=== PATIENT | male | born 1995 | race Caucasian/White ===

== ENCOUNTER 2018-06-14 18:32 | Emergency (ER) | payer MEDICAID ==
[~2018-06-14] VITALS: Ht 172.7 cm; Wt 65.8 kg
--- NOTE | 2018-06-14 18:56 | NUR ---
BIB [facility]. PATIENT IS AWAKE, ALERT, ORIENTED X4. [employer] AT BEDSIDE.
--- NOTE | 2018-06-14 19:05 | NUR ---
HAND OFF REPORT GIVEN TO JAJA MANCUSO
--- NOTE | 2018-06-14 19:21 | NUR ---
Dr. Trimble at bedside for MSE.
[2018-06-14] MEDS ORDERED: IBUPROFEN 600 MG TABLET ONE (19:38)
[2018-06-14] MEDS ORDERED: IBUPROFEN 600 MG TABLET PO ONE (19:45)
--- NOTE | 2018-06-14 20:10 | NUR ---
Xray at bedside.
--- NOTE | 2018-06-14 20:26 | NUR ---
Pt assisted to CT at this time.
[2018-06-14 20:58] LABS: BASOPHILS % (AUTO) 0.3 % (0.0-2.0); EOSINOPHILS # (AUTO) 0.1 K/uL (0.0-0.7); EOSINOPHILS % (AUTO) 0.3 % (0.0-7.0); HEMATOCRIT 46.6 % (36.7-47.1); HEMOGLOBIN 15.9 g/dL (12.5-16.3); LYMPHOCYTES # (AUTO) 0.8 K/uL (20.0-40.0); LYMPHOCYTES % (AUTO) 5.3 % (20.5-51.5); MEAN CORPUSCULAR HEMOGLOBIN 30.9 uug (23.8-33.4); MEAN CORPUSCULAR HGB CONC 34 g/dL (32.5-36.3); MEAN CORPUSCULAR VOLUME 90.5 fL (73.0-96.2); MONOCYTES % (AUTO) 6.3 % (0.0-11.0); NEUTROPHILS # (AUTO) 13.8 K/uL (1.8-8.9); NEUTROPHILS % (AUTO) 87.8 % (38.5-71.5); PLATELET COUNT (AUTO) 217 K/uL (152-348); RED BLOOD CELL COUNT(AUTO) 5.15 MIL/uL (4.06-5.63); WHITE BLOOD COUNT (AUTO) 15.7 K/uL (3.6-10.2)
[2018-06-14 21:03] LABS: POTASSIUM 4.1 mmol/L (3.5-5.1)
--- NOTE | 2018-06-14 21:24 | NUR ---
Pt stated no increased pain at this time since receiving Motrin. Awaiting further MD orders.
--- NOTE | 2018-06-14 21:34 | NUR ---
Patient discharged to home in stable conditon. Written and verbal after care instructions given. Patient verbalizes understanding of instructions. Pt able to ambulate independently.
[2018-06-14 21:35] VITALS: BP 140/78
== END 2018-06-14 21:40 | disposition home or self-care (01) ==
LOC: ER 18:32
DX: S50.311A Abrasion of right elbow, initial encounter (principal); T14.8XXA Other injury of unspecified body region, initial encounter; S09.90XA Unspecified injury of head, initial encounter; V23.4XXA Motorcycle driver injured in collision with car, pick-up truck or van in traffic accident, initial encounter; Y93.89 Activity, other specified; Y92.89 Other specified places as the place of occurrence of the external cause; Y99.8 Other external cause status
CPT/HCPCS: 36415; 70450; 72125; 73030; 73080; 73110; 73551; 73564; 80048; 85025; 99285; A4663